=== PATIENT | male | born 1975 | race Caucasian/White ===

== ENCOUNTER 2020-06-14 20:24 | Emergency (ER) | payer SELFPAY ==
[2020-06-14] VITALS (13 sets, daily range): BP systolic 140–171; BP diastolic 89–117; PULSE 68–103; RESP 16–18; TEMP 36.8; O2SAT 92–97; BMI 35.9
--- NOTE | 2020-06-14 20:32 | XR_ITS ---
WS: [id number] Exam: XR chest 1V portable [id number] Date/Time of Exam: 06/14/2020 8:32 PM Reason For Exam: palpitations Findings: The lungs are clear and fully expanded. Costophrenic angles are sharp. No infiltrates. Bronchovascula r relief appears normal. Cardiac silhouette is unremarkable. Bony elements are intact. XR/XR chest 1V portable [id number] IMPRESSION: Unremarkable chest radiograph.
[2020-06-14] MEDS: LORazepam 2 mg/mL INJ 1 mL 1 MG IVP (21:13)
[2020-06-14] MEDS: metoprolol tartrate 1 mg/1 mL SDV 5 mL 5 MG IV (21:14)
[2020-06-14 21:15] LABS: Basophils # 0.1 10^3/uL (0.0-0.1); Basophils % 0.6 %; Eosinophils # 0.2 10^3/uL (0.0-0.8); Eosinophils % 1.9 %; Hemoglobin 16.9 g/dL (11.7-16.6); Lymphocytes # 2.3 10^3/uL (0.8-4.8); Lymphocytes % 19.9 %; Mean Corpuscular HGB Conc 34.5 g/dL (30.0-36.0); Mean Corpuscular Hemoglobin 29.6 pg (28.0-34.0); Mean Corpuscular Volume 85.8 fL (80-94); Mean Platelet Volume 10.2 fL (7.4-10.4); Monocytes # 1.1 10^3/uL (0.2-0.9); Neutrophils # 8.03 10^3/uL (1.8-7.7); Neutrophils % 68.4 %; Nucleated Red Blood Cells % 0 %; Platelet Count 332 10^3/cmm (130-400); Red Blood Count 5.71 10^6/uL (4.1-5.3); Red Cell Distribution Width 12.2 % (12.1-15.1); White Blood Count 11.7 10^3/uL (4.0-10.0)
[2020-06-14 21:25] LABS: D Dimer <= 0.27 ug/mIFEU (0-0.59)
[2020-06-14 21:37] LABS: Troponin(5th) Baseline 6 ng/L (0-15)
[2020-06-14 21:44] LABS: Alanine Aminotransferase 46 U/L (0-41); Albumin Level 4.9 g/dL (3.5-5.2); Alkaline Phosphatase 79 IU/L (40-130); Aspartate Amino Transferase 24 U/L (0-40); Blood Urea Nitrogen 17 mg/dL (6-20); Calcium 10.3 mg/dL (8.5-10.5); Carbon Dioxide 24 mmol/L (22-29); Chloride 97 mmol/L (98-107); Creatinine Clr Calc Pharmacy 161.0208; Globulin 2.5 g/dL (1.3-4.6); Glucose 116 mg/dL (65-115); Osmolality Calculated 283 mOsm/kg (285-295); Sodium 135 mmol/L (136-145); Thyroid Stimulating Hormone 1.92 uIU/mL (0.27-4.20); Total Bilirubin 0.7 mg/dL (0.15-1.2); Total Protein 7.4 g/dL (6.6-8.7)
[2020-06-14 21:54] LABS: Anion Gap 17.8 (5-19); Potassium 3.8 mmol/L (3.5-5.1)
[2020-06-14] MEDS: lisinopril 10 mg Tablet PO (23:00)
[2020-06-14 23:43] LABS: Troponin 5 2HR Delta 0 ABS# (0-10)
--- NOTE | 2020-06-15 00:22 | W.ED.ARRPALP ---
HPI - Arrhythmia/Palpitations General: Chief Complaint: Arrhythmia/Palpitations Stated Complaint: PALPITATIONS Time Seen by Provider: 06/14/20 20:45 History of Present Illness: HPI narrative: 44-year-old gentleman presents with palpitation, chest discomfort, and hypertension. He had Covid in March. He mostly recovered from this, but then got a cold over a week ago. He has had chest congestion, with some discomfort in his chest on and off. He has noted fluttering in his chest as well at times. He also notes the feeling of blood rushing in his head with his heartbeat. No fever. He has taken Mucinex for congestion. MD complaint: palpitations Onset (ago): day(s) Duration: intermittent Severity: moderate Context: occurred during rest Associated symptoms: Reports anxiety, cough and short of breath; Deny diaphoresis, nausea or vomiting Review of Systems Const: Denies: diaphoresis Eyes: Denies: change in vision ENMT: Reports: post nasal drip; Denies: odynophagia, swelling of lips/tongue or sinus pain Card: Reports: chest pain and palpitations; Denies: irregular heart rhythm, edema or swelling of feet/ankles Resp: Reports: non-productive cough; Denies: dyspnea, productive cough or wheezing GI: Denies: nausea or vomiting : Denies: difficulty urinating or hematuria Musc: Denies: neck pain, joint redness or joint warmth Skin/Breast: Denies: rash or erythema Neuro: Reports: dizziness; Denies: headache(s) or vertigo Psych: Reports: anxiety PFS ED PFSH: Medical History (Updated 06/14/20 @ 22:57 by Jeet Prince DO) No active medical problems Surgical History (Updated 10/21/19 @ 10:13 by SCARLETT Marroquin) No history of previous surgery Family History (Updated 10/28/19 @ 13:28 by SCARLETT Marroquin) Mother Diabetes Social History (Updated 10/28/19 @ 13:30 by SCARLETT Marroquin) Smoking and tobacco status: never smoked Alcohol intake: never Caregiver/support person: Yes Lives independently: Yes Household members: spouse and children Marital status: Highest education level completed: 11th Grade service: No Current occupational status: employed Current gender identity: Male Physical Exam Const: GENERAL APPEARANCE: well developed ORIENTATION/CONSCIOUSNESS: Yes oriented to person, Yes oriented to place and Yes oriented to time HENMT: COMMON NORMALS: normocephalic, external ears normal and Normal external nose present HEAD & SCALP: normocephalic FACE & SINUS: normal facial exam NOSE: Normal external nose present and No nasal discharge present EXTERNAL EAR: Yes external ears normal Eye: COMMON NORMALS: Equal, round and reactive pupils present, EOMs intact bilaterally and conjunctivae normal EYELID: eyelids normal CONJUNCTIVA: Yes conjunctivae normal PUPIL: Yes Equal, round and reactive pupils present Neck/C-Spine: GENERAL: No tracheal deviation Chest: COMMONS NORMALS: normal inspection of the chest CHEST: No tenderness Resp: COMMON NORMALS: clear to auscultation bilaterally EFFORT & INSPECTION: No tachypneic, No respiratory distress, No retractions, No uses accessory muscles and No tracheal deviation AUSCULTATION: clear to auscultation bilaterally, no rhonchi, no wheezes and lung sounds not diminished Cardio: COMMON NORMALS: regular rhythm RATE: tachycardic RHYTHM: regular rhythm HEART SOUNDS: no murmurs PERIPHERAL PULSES: radial pulses present GI: INSPECTION: No abdominal distension AUSCULTATION: No Hyperactive bowel sounds present and No Hypoactive bowel sounds present PALPATION: No Guarding due to palpation present (GI) and No Rigid due to palpation PERCUSSION: no dullness to percussion and no tympanic to percussion Neuro: SENSORIUM/ORIENTATION: Yes oriented to person, Yes oriented to place and Yes oriented to time Psych: COMMON NORMALS: mental status grossly normal Skin: COMMON NORMALS: no rashes or lesions noted GENERAL SKIN EXAM: no rashes or lesions noted Course Vital Signs: Vital signs: Vital Signs Temperature 98.3 F 06/14/20 20:38 Pulse Rate 85 06/14/20 23:19 Respiratory Rate 17 06/14/20 23:19 Blood Pressure 141/89 06/14/20 23:19 Pulse Oximetry 95 06/14/20 23:19 MDM - Arrhythmia/Palpitations MDM Narrative: Medical decision making narrative: 44-year-old gentleman healthy. He complains of palpitations and chest discomfort. EKG shows no acute ST changes. Chest x-ray is negative. Hemoglobin is 17. White blood cell count is minimally elevated at 11.7. Other labs are essentially normal. This patient is hypertensive, which remained. D-dimer is nondetectable. Troponin was negative. We will have the patient check blood pressures twice daily. 10 mg lisinopril will be prescribed for blood pressure if needed. Close outpatient follow-up. Lab Data: Labs: Lab Results 06/14/20 06/14/20 06/14/20 Range/Units 20:57 20:57 20:57 WBC 11.7 H (4.0-10.0) 10^3/ uL RBC 5.71 H (4.1-5.3) 10^6/u L Hgb 16.9 H (11.7-16.6) g/dL Hct 49.0 (42.0-52.0) % MCV 85.8 (80-94) fL MCH 29.6 (28.0-34.0) pg MCHC 34.5 (30.0-36.0) g/dL RDW 12.2 (12.1-15.1) % Plt Count 332 (130-400) 10^3/c mm MPV 10.2 (7.4-10.4) fL Neut % (Auto) 68.4 % Lymph % (Auto) 19.9 % [place] % (Auto) 9.0 % Eos % (Auto) 1.9 % Baso % (Auto) 0.6 % Neut # (Auto) 8.03 H (1.8-7.7) 10^3/u L Lymph # (Auto) 2.3 (0.8-4.8) 10^3/u L [place] # (Auto) 1.1 H (0.2-0.9) 10^3/u L Eos # (Auto) 0.2 (0.0-0.8) 10^3/u L Baso # (Auto) 0.1 (0.0-0.1) 10^3/u L Nucleated RBC % (a uto) 0 % Nucleated RBCs # 0.0 /100WBC D-Dimer (0-0.59) ug/mIFE U Sodium 135 L (136-145) mmol/L Potassium 3.8 (3.5-5.1) mmol/L Chloride 97 L (98-107) mmol/L Carbon Dioxide 24 (22-29) mmol/L Anion Gap 17.8 (5-19) BUN 17 (6-20) mg/dL Creatinine 0.8 (0.7-1.2) mg/dL GFR Calculation 106.0 (90-130) mL/min Glucose 116 H (65-115) mg/dL Calculated Osmolal ity 283 L (285-295) mOsm/k g Calcium 10.3 (8.5-10.5) mg/dL Total Bilirubin 0.7 (0.15-1.2) mg/dL AST 24 (0-40) U/L ALT 46 H (0-41) U/L Alkaline Phosphata se 79 (40-130) IU/L Troponin T Baselin e 6 (0-15) ng/L Troponin T 120 Min [place] (0-15) ng/L Delta Troponin T (0-10) ABS# Total Protein 7.4 (6.6-8.7) g/dL Albumin 4.9 (3.5-5.2) g/dL Globulin 2.5 (1.3-4.6) g/dL TSH 1.92 (0.27-4.20) uIU/ mL 06/14/20 06/14/20 Range/Units 20:57 23:02 WBC (4.0-10.0) 10^3/ uL RBC (4.1-5.3) 10^6/u L Hgb (11.7-16.6) g/dL Hct (42.0-52.0) % MCV (80-94) fL MCH (28.0-34.0) pg MCHC (30.0-36.0) g/dL RDW (12.1-15.1) % Plt Count (130-400) 10^3/c mm MPV (7.4-10.4) fL Neut % (Auto) % Lymph % (Auto) % [place] % (Auto) % Eos % (Auto) % Baso % (Auto) % Neut # (Auto) (1.8-7.7) 10^3/u L Lymph # (Auto) (0.8-4.8) 10^3/u L [place] # (Auto) (0.2-0.9) 10^3/u L Eos # (Auto) (0.0-0.8) 10^3/u L Baso # (Auto) (0.0-0.1) 10^3/u L Nucleated RBC % (a uto) % Nucleated RBCs # /100WBC D-Dimer <= 0.27 (0-0.59) ug/mIFE U Sodium (136-145) mmol/L Potassium (3.5-5.1) mmol/L Chloride (98-107) mmol/L Carbon Dioxide (22-29) mmol/L Anion Gap (5-19) BUN (6-20) mg/dL Creatinine (0.7-1.2) mg/dL GFR Calculation (90-130) mL/min Glucose (65-115) mg/dL Calculated Osmolal ity (285-295) mOsm/k g Calcium (8.5-10.5) mg/dL Total Bilirubin (0.15-1.2) mg/dL AST (0-40) U/L ALT (0-41) U/L Alkaline Phosphata se (40-130) IU/L Troponin T Baselin e (0-15) ng/L Troponin T 120 Min [place] 6.00 (0-15) ng/L Delta Troponin T 0 (0-10) ABS# Total Protein (6.6-8.7) g/dL Albumin (3.5-5.2) g/dL Globulin (1.3-4.6) g/dL TSH (0.27-4.20) uIU/ mL Discharge Plan Discharge Patient Disposition: Home Clinical Impression: Palpitations Hypertension Qualifiers: Hypertension type: unspecified Qualified Code(s): I10 - Essential (primary) hypertension Condition: Stable Prescriptions: New lisinopril 10 mg tablet 10 mg PO DAILY Qty: 30 RF: 0 No Action prednisone 20 mg tablet 20 mg PO DAILY Qty: 5 RF: 0 Discharge Orders: Discharge ED (Routine); Ordered 06/14/20 Ordered By: Jeet Prince Referrals: Jaimie George FNP [Primary Care Provider] - 4-7 days Patient Instructions: Hypertension (ED) Activity Restrictions/Additional Instructions: Check your blood pressure twice daily. Report numbers to your physician this coming week. Return for continued or worsening chest discomfort, palpitations, syncope or passing out, shortness of breath, other concerning symptoms. Coding Level of Care Code ED Refueling Ramp Attendant for Chg Fwd Exam Comprehensive
== END 2020-06-14 23:25 | disposition home or self-care (01) ==
PROVIDERS: Nurse Practitioner Family; Emergency Provider Emergency Medicine; PCP Nurse Practitioner Family
DX: R00.2 Palpitations (principal); I10 Essential (primary) hypertension
CPT/HCPCS: 36415; 71045; 80053; 84443; 84484; 85025; 85378; 96374; 96375; 99284; J2060; J3490

== ENCOUNTER → 2022-07-27 14:10 | Outpatient (BNVA) | payer OTHER, SELFPAY | PROVIDERS: PCP Nurse Practitioner Family; Visit Provider Nurse Practitioner Family | DX: I10 Essential (primary) hypertension (principal); G89.29 Other chronic pain; M54.9 Dorsalgia, unspecified | CPT/HCPCS: 72070; 72100; 80053; 80061; 84443; 85025 ==